=== PATIENT | male | born 1955 | race Caucasian/White ===

== ENCOUNTER 2017-02-18 02:44 | Emergency (ER) | payer MEDICAID ==
[2017-02-18 03:14] VITALS: BP 173/98
--- NOTE | 2017-02-18 03:25 | C.PDOC ---
History Of Present Illness Patient presents to ED with complaints of cough, congestion, "feeling weak" and wants to rest. Patient takes 30mg of Methadone daily but denies overdose on medication. Patient denies fever, chills, Nausea/vomiting and diarrhea. Time Seen by Provider: 02/18/17 03:24 Chief Complaint (Nursing): Substance Abuse History Per: Patient History/Exam Limitations: no limitations Onset/Duration Of Symptoms: Days Current Symptoms Are (Timing): Still Present Suicide/Self Injury Attempted (Context): None Modifying Factor(s): Other (Methadone 30mg daily) Severity: Mild Pain Scale Rating Of: 2 Associated Symptoms: denies: Anger, Anxiety Involuntary Hold By: None Recent travel outside of the [place]: No Additional History Per: Patient Past Medical History Reviewed: Historical Data, Nursing Documentation, Vital Signs Vital Signs: Last Vital Signs Temp 98.5 F 02/18/17 03:07 Pulse 68 02/18/17 05:08 Resp 20 02/18/17 03:07 BP 173/98 H 02/18/17 03:07 Pulse Ox 88 L 02/18/17 03:44 - Medical History PMH: Asthma Family History: States: No Known Family Hx - Social History Hx Tobacco Use: No Hx Alcohol Use: No Hx Substance Use: Yes (HX OF HEROIN ABUSE) - Immunization History Hx Tetanus Toxoid Vaccination: Yes Hx Influenza Vaccination: No Hx Pneumococcal Vaccination: No Review Of Systems Constitutional: Negative for: Fever, Chills Respiratory: Positive for: Cough. Negative for: Shortness of Breath Gastrointestinal: Negative for: Nausea, Vomiting, Diarrhea Skin: Negative for: Rash, Lesions Psych: Negative for: Anxiety Physical Exam - Physical Exam Appears: Non-toxic Skin: Warm, Dry Eye(s): bilateral: Normal Inspection Oral Mucosa: Dry Neck: Supple Cardiovascular: Rhythm Regular Respiratory: No Rales, Rhonchi (Scattered ronchi), No Wheezing Neurological/Psych: Oriented x3, Normal Speech, Normal Cognition Gait: Steady ED Course And Treatment - Laboratory Results Result Diagrams: 02/18/17 04:23 02/18/17 03:58 ECG: Interpreted By Me, Viewed By Me ECG Rhythm: Sinus Rhythm (69), Nonspecific Changes O2 Sat by Pulse Oximetry: 88 (Room air ) Pulse Ox Interpretation: Abnormal - Radiology CXR: Interpreted by Me, Viewed By Me Against Medical Advice - AMA Patient Left Against Medical Advice: The patient declines admission to the hospital and wishes to leave the Emergency Department. This action is against my medical advice. This decision was made with informed refusal. The patient was told that admission to the hospital is necessary. Explanation of the reasons why were discussed. The risks of leaving were explained to the patient and include, but are not limited to, worsening of known or currently unknown conditions, permanent disability and from undiagnosed or untreated conditions. The patient has the capacity to make this informed decision and understands my explanation of the current medical problem and risks of leaving. The patient voluntarily accepts these risks and signed an AMA form documenting our conversation. The patient was given the opportunity to ask questions and reconsider. The patient was encouraged to return to the Emergency Department at any time for further care. Critical Care Time - Critical Care Note Total Time (in mins): 30 Documented critical care: time excludes all time spent performing seperately billable procedures. Disposition Counseled Patient/Family Regarding: Studies Performed, Diagnosis, Need For Followup - Disposition Disposition: AGAINST MEDICAL ADVICE Disposition Time: 03:25 Condition: FAIR Instructions: COPD (Chronic Obstructive Pulmonary Disease) (DC) - Clinical Impression Clinical Impression: COPD exacerbation, Hypercarbia - PA / INSPECTOR [employer]PERIMENT[employer] / Resident Statement MD/DO has reviewed & agrees with the documentation as recorded. - Scribe Statement The provider has reviewed the documentation as recorded by the Scribdaisy Bedoya All medical record entries made by the Joanna were at my direction and personally dictated by me. I have reviewed the chart and agree that the record accurately reflects my personal performance of the history, physical exam, medical decision making, and the department course for this patient. I have also personally directed, reviewed, and agree with the discharge instructions and disposition. Decision To Admit - . Patient Diagnosis: COPD exacerbation, Hypercarbia
[2017-02-18] MEDS ORDERED: Sodium Chloride 0.9% 1,000 ML IV ONE (03:28)
[2017-02-18 04:03] LABS: CHLORIDE 97 mmol/L (98-107); POTASSIUM 4.4 mmol/L (3.6-5.2); SODIUM 139 mmol/L (132-148)
[2017-02-18 04:05] LABS: ALB/GLOB RATIO 0.9 (1.0-2.1); AST/SGOT 24 U/L (17-59); BILIRUBIN,TOTAL 0.2 mg/dL (0.2-1.3); CARBON DIOXIDE 33 mmol/L (22-30); GFR AFRICAN-AMERICAN > 60; TOTAL PROTEIN 7.4 g/dL (6.3-8.3)
[2017-02-18 04:06] LABS: ALKALINE PHOSPHATASE 65 U/L (38-126); ALT/SGPT 25 U/L (21-72); BLOOD UREA NITROGEN 15 mg/dL (9-20); CALCIUM 8.6 mg/dl (8.6-10.4); GLUCOSE,RANDOM 110 mg/dL (75-110)
[2017-02-18 04:19] LABS: ABG ALLEN TEST POS; DRAW SITE RT RAD
[2017-02-18 04:29] LABS: BASO % 0.3 % (0.0-2.0); EOS # 0.1 K/uL (0.0-0.7); EOS % 0.5 % (0.0-4.0); HEMATOCRIT 37.6 % (35.0-51.0); LYMPH # 0.9 K/uL (1.0-4.3); LYMPH % 9.5 % (20.0-40.0); MEAN CELL VOLUME 91.5 fL (80.0-94.0); MEAN CORPUSCULAR HEMOGLOBIN 30.6 pg (27.0-31.0); MEAN CORPUSCULAR HGB CONC 33.5 g/dL (33.0-37.0); MEAN PLATELET VOLUME 6.9 fL (7.2-11.7); MONO # 0.7 K/uL (0.0-0.8); MONO % 7.1 % (0.0-10.0); PLATELET COUNT 152 K/uL (130-400); RED CELL DISTRIBUTION WIDTH 13.7 % (11.5-14.5); WHITE BLOOD COUNT 9.3 K/uL (4.8-10.8)
[2017-02-18 04:52] LABS: NEUTROPHIL 83 % (50-75); TOTAL CELLS COUNTED 100
[2017-02-18 04:54] LABS: RBC URINE 34 /hpf (0-3); URINE BILIRUBIN NEGATIVE (NEGATIVE); URINE BLOOD 2+ (NEGATIVE); URINE COLOR Yellow (YELLOW); URINE GLUCOSE (UA) NORMAL (Normal); URINE KETONE NEGATIVE (NEGATIVE); URINE LEUKOCYTE ESTERASE NEG Leu/uL (Negative); URINE PROTEIN 2+ mg/dL (NEGATIVE); URINE UROBILINOGEN NORMAL mg/dL (0.2-1.0); WBC URINE 7 /hpf (0-5)
[2017-02-18 06:58] VITALS: PULSE 88; RESP 22; TEMP 98; O2SAT 90
--- NOTE | 2017-02-18 09:06 | RAD ---
PROCEDURE: CHEST RADIOGRAPH, 1 VIEW HISTORY: SOB COMPARISON: None available. FINDINGS: LUNGS: No focal infiltrate or effusion. Upper lobe granulomatous changes. PLEURA: No pneumothorax or pleural fluid seen. CARDIOVASCULAR: Normal. OSSEOUS STRUCTURES: No significant abnormalities. VISUALIZED UPPER ABDOMEN: Normal. OTHER FINDINGS: None. IMPRESSION: No focal infiltrate or effusion. Upper lobe granulomatous changes.
--- NOTE | 2017-02-26 14:35 | CARD ---
APPROVED REPORT EKG Measurement Heart [id number] <Conclusion> Normal sinus rhythm Inferior infarct, age undetermined Abnormal ECG
== END 2017-02-18 06:57 | disposition left against medical advice (07) ==
LOC: C.ER 02:44
DX: J44.1 Chronic obstructive pulmonary disease with (acute) exacerbation (principal); R06.89 Other abnormalities of breathing; F17.210 Nicotine dependence, cigarettes, uncomplicated

== ENCOUNTER 2017-04-16 03:55 | Emergency (ER) | payer MEDICAID ==
[2017-04-16] MEDS ORDERED: Sodium Chloride 0.9% 1,000 ML IV ONE (05:12)
--- NOTE | 2017-04-16 05:13 | C.PDOC ---
"History Of Present Illness <Susana Lopes - Last Filed: 04/16/17 06:51> <Dena Swain - Last Filed: 04/16/17 10:16> 61 yo male BIBA for evaluation of diffuse periumbilical cramping abdominal pain for past 3 days. Last BM 3 days ago. Otherwise, denies, lost of appetite, fever , chills, CP, SOB, dyspnea, palpitation, vomiting or diarrhea, melena, hematposchezia, back pain, UTI sx. AT the time of evaluation, comfortable, not in any apparent distress, (Susana Lopes) History Per: Patient Onset/Duration Of Symptoms: Intermittent Episodes, Gradual <Susana Lopes - Last Filed: 04/16/17 06:51> <Dena Swain - Last Filed: 04/16/17 10:16> Time Seen by Provider: 04/16/17 04:14 Chief Complaint (Nursing): GI Problem Past Medical History Reviewed: Historical Data, Nursing Documentation, Vital Signs - Medical History PMH: Asthma Family History: States: Unknown Family Hx - Social History Hx Tobacco Use: No Hx Alcohol Use: No Hx Substance Use: Yes (HX OF HEROIN ABUSE) - Immunization History Hx Tetanus Toxoid Vaccination: Yes Hx Influenza Vaccination: No Hx Pneumococcal Vaccination: No <Susana Lopes - Last Filed: 04/16/17 06:51> Review Of Systems Except As Marked, All Systems Reviewed And Found Negative. Constitutional: Negative for: Fever, Chills ENT: Negative for: Throat Pain Cardiovascular: Negative for: Chest Pain, Palpitations, Light Headedness Respiratory: Negative for: Cough, Shortness of Breath, Wheezing Gastrointestinal: Positive for: Nausea, Abdominal Pain, Constipation. Negative for: Vomiting, Diarrhea, Melena, Hematochezia, Hematemesis Genitourinary: Negative for: Dysuria, Frequency, Incontinence Musculoskeletal: Positive for: Back Pain, Foot Pain. Negative for: Neck Pain Skin: Negative for: Rash Neurological: Negative for: Altered Mental Status <Susana Lopes - Last Filed: 04/16/17 06:51> Physical Exam - Physical Exam Appears: Well, Non-toxic, No Acute Distress Skin: Normal Color, Warm, Dry Eye(s): bilateral: PERRL Nose: No Flaring Throat: Normal, No Erythema, No Exudate, No Drooling Neck: Supple Cardiovascular: Rhythm Regular Respiratory: No Decreased Breath Sounds, No Accessory Muscle Use, No Stridor, No Wheezing Gastrointestinal/Abdominal: Normal Exam (periumbilical tenderness), Soft, Tenderness, No Organomegaly, No Distention, No Guarding Back: No CVA Tenderness Extremity: No Pedal Edema Neurological/Psych: Oriented x3, Normal Speech <Susana Lopes - Last Filed: 04/16/17 06:51> ED Course And Treatment - Laboratory Results Result Diagrams: 04/16/17 05:55 04/16/17 05:55 O2 Sat by Pulse Oximetry: 97 Progress Note: Pt remained stable, not in any apparent distress. Afebrile, hemodynamicaly stable. Abd: benign, (-) guarding, (-) rebound. Blood work review and appears without acute abnoramlities. CT abd/pelvis-pending. case discussed and sign out to PA. <Susana Lopes - Last Filed: 04/16/17 06:51> - Laboratory Results Result Diagrams: 04/16/17 05:55 04/16/17 05:55 Progress Note: Pt was signed out to me at 7am pending CT scan. Pt was evaluated at 7am. C/o LLQ abd pain, described as cramping. No N/v. Notes he feels like he need to have BM. No fever. Toradol ordered. CT result: EXAM: CT Abdomen and Pelvis With Intravenous Contrast. CLINICAL HISTORY: 61 years old, male; Pain; Abdominal pain; Generalized; Additional info: Abd pain. TECHNIQUE: Axial computed tomography images of the abdomen and pelvis with intravenous contrast. This CT. exam was performed using one or more of the following dose reduction techniques: automated. exposure control, adjustment of the mA and/or kV according to patient size, and/or use of iterative. reconstruction technique. CONTRAST: 100 mL of visipaque administered intravenously. EXAM DATE/TIME: Exam ordered 04/16/2017 5:12 AM. COMPARISON: No relevant prior studies available. FINDINGS: Lower thorax: No acute findings. ABDOMEN: Liver: Unremarkable. No mass. Gallbladder and bile ducts: Unremarkable. No calcified stones. No ductal dilation. Pancreas: Unremarkable. No mass. No ductal dilation. Spleen: Unremarkable. No splenomegaly. Adrenals: Unremarkable. No mass. Kidneys and ureters: Unremarkable. No solid mass. No hydronephrosis. [facility] | Preliminary Radiology Report. MANAGER DAIRY (QA) DISCREPANCY? If there is a discrepancy between the preliminary and final interpretation, please notify [facility] via [email or web address]. If you do not have access to our QA portal, call our QA team at [phone]. CONFIDENTIALITY STATEMENT. This report is intended only for the use of the referring physician, and only in accordance with law, If you received this in error, call [phone]. Page 2 of 2. Stomach and bowel: Moderate fecal retention. Appendix: No findings to suggest acute appendicitis. PELVIS: Bladder: Unremarkable. No mass. Reproductive: Unremarkable as visualized. ABDOMEN and PELVIS: Intraperitoneal space: Unremarkable. No free air. No significant fluid collection. Bones/joints: Degenerative change in the spine. No acute fracture. No dislocation. Soft tissues: Small fat containing umbilical hernia. Fat-containing inguinal hernias. Vasculature: Atherosclerosis. Mild nonspecific stranding around the celiac and SMA both of which. appear to be patent, and may be inflammatory however is nonspecific. No abdominal aortic. aneurysm. Lymph nodes: Scattered inguinal lymph nodes are presumably inflammatory. IMPRESSION: Moderate fecal retention. Thank you for allowing us to participate in the care of your patient. On re-evaluation, pt is sleeping. Pain improved. Discussed results of CT. Fleet enema ordered. On re-evaluation, pt notes improvement of pain. Pt had BM. Instructed diet change and follow up with PMD in 1-2 days. Instructed to returm to ER if symptoms persist or worsen. <Dena Swain - Last Filed: 04/16/17 10:16> Disposition <Susana Lopes - Last Filed: 04/16/17 06:51> - Disposition Disposition Time: 09:00 <Dena Swain - Last Filed: 04/16/17 10:16> - Disposition Disposition: HOME/ ROUTINE Condition: STABLE Additional Instructions: Increase your fiber and water intake.Follow up with your primary medical doctor or clinic in 2-5 days for further evaluation. Take medications as prescribed. Return to the emergency department at any time if symptoms persist or worsen. Prescriptions: Polyethylene Glycol 3350 [Miralax] 17 gm PO DAILY #85 gm Instructions: Constipation (ED) - Clinical Impression Clinical Impression: Constipation"
[2017-04-16] MEDS ORDERED: Sodium Chloride 0.9% 1,000 ML ONE (05:37)
[2017-04-16 05:57] LABS: BASO % 0.2 % (0.0-2.0); EOS # 0.1 K/uL (0.0-0.7); EOS % 0.7 % (0.0-4.0); HEMATOCRIT 42.7 % (35.0-51.0); LYMPH # 1.6 K/uL (1.0-4.3); LYMPH % 15.1 % (20.0-40.0); MEAN CELL VOLUME 89.8 fL (80.0-94.0); MEAN CORPUSCULAR HGB CONC 33.5 g/dL (33.0-37.0); MONO # 0.7 K/uL (0.0-0.8); MONO % 6.4 % (0.0-10.0); RED CELL DISTRIBUTION WIDTH 13.7 % (11.5-14.5); WHITE BLOOD COUNT 10.5 K/uL (4.8-10.8)
[2017-04-16 06:12] LABS: CHLORIDE 99 mmol/L (98-107)
[2017-04-16 06:14] LABS: POTASSIUM 4.4 mmol/L (3.6-5.2); SODIUM 136 mmol/L (132-148)
[2017-04-16 06:15] LABS: RBC URINE 11 /hpf (0-3); URINE BILIRUBIN NEGATIVE (NEGATIVE); URINE BLOOD 2+ (NEGATIVE); URINE COLOR Yellow (YELLOW); URINE GLUCOSE (UA) NORMAL (Normal); URINE KETONE NEGATIVE (NEGATIVE); URINE LEUKOCYTE ESTERASE NEG Leu/uL (Negative); URINE PROTEIN 2+ mg/dL (NEGATIVE); URINE UROBILINOGEN NORMAL mg/dL (0.2-1.0); WBC URINE 1 /hpf (0-5)
[2017-04-16 06:16] LABS: ALKALINE PHOSPHATASE 74 U/L (38-126); ALT/SGPT 25 U/L (21-72); AST/SGOT 29 U/L (17-59); BILIRUBIN,TOTAL 0.5 mg/dL (0.2-1.3); BLOOD UREA NITROGEN 15 mg/dL (9-20); CARBON DIOXIDE 30 mmol/L (22-30); GFR AFRICAN-AMERICAN > 60
[2017-04-16 06:17] LABS: CALCIUM 8.8 mg/dl (8.6-10.4); GLUCOSE,RANDOM 118 mg/dL (75-110)
[2017-04-16] MEDS ORDERED: Iodixanol 320 MG/ML 100 ML BOTTLE IV ONE (06:29)
[2017-04-16 07:09] VITALS: RESP 18
[2017-04-16 09:09] VITALS: BP 155/79; PULSE 71; TEMP 98.3; O2SAT 99
--- NOTE | 2017-04-16 10:22 | CT ---
PROCEDURE: CT Abdomen and Pelvis with intravenous contrast HISTORY: Abdominal pain COMPARISON: None. TECHNIQUE: Multiple contiguous axial images were performed through the abdomen and pelvis with the use of intravenous contrast. Subsequently, sagittal and coronal reformatted images were obtained. Radiation dose: Total exam DLP = 614 mGy-cm. This CT exam was performed using one or more of the following dose reduction techniques: Automated exposure control, adjustment of the mA and/or kV according to patient size, and/or use of iterative reconstruction technique. FINDINGS: LOWER THORAX: Unremarkable. LIVER: Mild fatty infiltration of the liver. Few punctate 4 and 2 millimeter calcified foci in the right hepatic lobe, possibly granulomatous changes. GALLBLADDER AND BILE DUCTS: Unremarkable. PANCREAS: Unremarkable. No gross lesion or ductal dilatation. SPLEEN: Unremarkable. ADRENALS: Unremarkable. No mass. KIDNEYS AND URETERS: Unremarkable. No hydronephrosis. No solid mass. VASCULATURE: Atherosclerosis. Mild nonspecific stranding around the celiac and SMA both of which appear to be patent. These findings are nonspecific, possibly inflammatory. Clinical correlation. BOWEL: Moderate fecal retention in the colon. APPENDIX: No findings to suggest an acute appendicitis. PERITONEUM: Unremarkable. No free fluid. No free air. LYMPH NODES: Scattered inguinal lymph nodes presumably inflammatory. BLADDER: Unremarkable. REPRODUCTIVE: Unremarkable. BONES: Degenerative changes in the spine. OTHER FINDINGS: Small fat containing umbilical hernia. Fat containing inguinal hernias. IMPRESSION: Moderate fecal retention in the colon. Mild nonspecific stranding around the celiac and SMA both of which appear to be patent. These findings are nonspecific, possibly inflammatory. Clinical correlation. Additional findings as above. These findings were preliminarily reported at 8:14 a.m. on 04/16/[address] Crispin Day from [facility].
== END 2017-04-16 09:09 | disposition home or self-care (01) ==
LOC: C.ER 03:55
DX: K59.00 Constipation, unspecified (principal)
CPT/HCPCS: 74177; 80053; 81001; 83690; 85025; 96361; 96374; 99285; J1885; J7040; Q9967

== ENCOUNTER 2017-12-17 13:35 | Emergency (ER) | payer MEDICAID ==
[2017-12-17] MEDS ORDERED: Albuterol-Ipratrop 3 mg / 0.5 (3 ml) UD INH STA ×2 (13:51→14:18)
[2017-12-17] MEDS ORDERED: Magnesium Sulfate 1 gm in D5W 1 GM/100 ML BAG IVPB ONE ×2 (14:29→15:27)
[2017-12-17] MEDS: Magnesium Sulfate 1 gm in D5W 1 GM/100 ML BAG IVPB SCH ×2 (14:45→15:30)
[2017-12-17 14:47] LABS: BASO % 0.2 % (0.0-2.0); EOS # 0.2 K/uL (0.0-0.7); EOS % 2.6 % (0.0-4.0); HEMOGLOBIN 13.6 g/dL (12.0-18.0); LYMPH # 1.1 K/uL (1.0-4.3); LYMPH % 15.4 % (20.0-40.0); MEAN CELL VOLUME 90.7 fL (80.0-94.0); MEAN CORPUSCULAR HEMOGLOBIN 30.4 pg (27.0-31.0); MEAN CORPUSCULAR HGB CONC 33.6 g/dL (33.0-37.0); MONO # 0.6 K/uL (0.0-0.8); MONO % 7.8 % (0.0-10.0); NEUT # 5.5 K/uL (1.8-7.0); RBC 4.46 Mil/uL (4.40-5.90); RED CELL DISTRIBUTION WIDTH 13.6 % (11.5-14.5); WHITE BLOOD COUNT 7.4 K/uL (4.8-10.8)
[2017-12-17] MEDS ORDERED: Albuterol-Ipratrop 3 mg / 0.5 (3 ml) UD ONE (14:54)
[2017-12-17 14:59] LABS: ALB/GLOB RATIO 0.9 (1.0-2.1); ALBUMIN 3.7 g/dL (3.5-5.0); ALT/SGPT 32 U/L (21-72); AST/SGOT 28 U/L (17-59); BLOOD UREA NITROGEN 18 mg/dL (9-20); CALCIUM 8.5 mg/dl (8.6-10.4); GFR AFRICAN-AMERICAN > 60; GFR NON-AFRICAN AMERICAN > 60
--- NOTE | 2017-12-17 15:03 | RAD ---
HISTORY: SOB- cough COMPARISON: Chest x-ray performed 02/18/17 TECHNIQUE: Chest, one view. FINDINGS: LUNGS: Bilateral hilar prominence. No focal consolidation. Please note that chest x-ray has limited sensitivity for the detection of pulmonary masses. PLEURA: No significant pleural effusion identified. No definite pneumothorax . CARDIOVASCULAR: Heart size appears within normal limits. OSSEOUS STRUCTURES: No acute osseous abnormality identified. VISUALIZED UPPER ABDOMEN: Unremarkable. OTHER FINDINGS: None. IMPRESSION: No focal consolidation identified. Bilateral hilar prominence.
--- NOTE | 2017-12-17 15:11 | C.PDOC ---
History Of Present Illness 62 y/o male presents to ED with complaints of SOB and dry cough that began several days ago. Denies fever, chest pain, nausea, vomiting, body aches, PMHx or home medications. Chief Complaint (Nursing): Cough, Cold, Congestion History Per: Patient History/Exam Limitations: no limitations Onset/Duration Of Symptoms: Days Current Symptoms Are (Timing): Still Present Recent travel outside of the [place]: No Past Medical History Reviewed: Historical Data, Nursing Documentation, Vital Signs Vital Signs: Last Vital Signs Temp 98.7 F 12/17/17 19:00 Pulse 62 12/17/17 19:00 Resp 18 12/17/17 19:00 BP 110/92 H 12/17/17 19:00 Pulse Ox 100 12/17/17 19:00 - Medical History PMH: Asthma Surgical History: No Surg Hx Family History: States: No Known Family Hx - Social History Hx Tobacco Use: No Hx Alcohol Use: No Hx Substance Use: Yes (HX OF HEROIN ABUSE) - Immunization History Hx Tetanus Toxoid Vaccination: Yes Hx Influenza Vaccination: No Hx Pneumococcal Vaccination: No Review Of Systems Constitutional: Negative for: Fever, Chills Cardiovascular: Negative for: Chest Pain, Palpitations Respiratory: Positive for: Cough (dry ), Shortness of Breath Gastrointestinal: Negative for: Nausea, Vomiting, Abdominal Pain, Diarrhea Musculoskeletal: Negative for: Other (body aches) Neurological: Negative for: Weakness, Numbness Physical Exam - Physical Exam Appears: Well, Non-toxic, Other (Mild distress ) Skin: Normal Color, Warm, Dry Head: Atraumatic, Normacephalic Eye(s): bilateral: Normal Inspection Oral Mucosa: Moist Neck: Supple Chest: Symmetrical, No Tenderness Cardiovascular: Rhythm Regular Respiratory: No Rales, No Rhonchi, Wheezing (bilateral expiratory ) Gastrointestinal/Abdominal: Soft, No Tenderness, No Distention, No Guarding, No Rebound Extremity: Normal ROM, No Pedal Edema, No Swelling Extremity: Bilateral: Normal Color And Temperature, Normal ROM Neurological/Psych: Oriented x3, Normal Speech, Normal Cognition ED Course And Treatment - Laboratory Results Result Diagrams: 12/17/17 14:42 12/17/17 14:42 O2 Sat by Pulse Oximetry: 91 (RA) - Other Rad CXR X-Ray: Viewed By Me, Read By Radiologist Interpretation: HISTORY: SOB- cough. COMPARISON: Chest x-ray performed . TECHNIQUE: Chest, one view. FINDINGS: LUNGS: Bilateral hilar prominence. No focal consolidation. Please note that chest x-ray has limited sensitivity for the detection of pulmonary masses. PLEURA: No significant pleural effusion identified. No definite pneumothorax . CARDIOVASCULAR: Heart size appears within normal limits. OSSEOUS STRUCTURES: No acute osseous abnormality identified. VISUALIZED UPPER ABDOMEN: Unremarkable. OTHER FINDINGS: None. IMPRESSION: No focal consolidation identified. Bilateral hilar prominence. Critical Care Time - Critical Care Note Total Time (in mins): 0 Documented critical care: time excludes all time spent performing seperately billable procedures. Medical Decision Making Medical Decision Making: Administered Iv fluids, and duoneb.Ordered EKG, blood work, CXR, blood culture, Peak flow, and Flu AB swab. EKG Results: Sinus rhythm at 69 bpm Normal axis and rhythm spoke with Dr.Padmavathi Aviles and patient will be admitted to her service. Disposition - Disposition Disposition: AGAINST MEDICAL ADVICE Disposition Time: 15:30 Condition: GOOD - Clinical Impression Clinical Impression: COPD exacerbation - Scribe Statement The provider has reviewed the documentation as recorded by the Scribe Vic Hernandez All medical record entries made by the Scribe were at my direction and personally dictated by me. I have reviewed the chart and agree that the record accurately reflects my personal performance of the history, physical exam, medical decision making, and the department course for this patient. I have also personally directed, reviewed, and agree with the discharge instructions and disposition.
[2017-12-17 15:47] LABS: B-TYPE NATRIURETIC PEPTIDE 48.5 pg/mL (0-900)
[2017-12-17 19:21] VITALS: BP 110/92; PULSE 62; RESP 18; TEMP 98.7
[2017-12-18 00:25] VITALS: O2SAT 91
--- NOTE | 2017-12-19 14:41 | CARD ---
APPROVED REPORT EKG Measurement Heart [id number] <Conclusion> Normal sinus rhythm Incomplete right bundle branch block Borderline ECG
== END 2017-12-17 19:00 | disposition left against medical advice (07) ==
LOC: C.ER 13:35 → C.9E 15:46 → UNDOADMOB 15:46
DX: J44.1 Chronic obstructive pulmonary disease with (acute) exacerbation (principal)
CPT/HCPCS: 71045; 80053; 83880; 84484; 85025; 87040; 87804; 93005; 94640; 96365; 96366; 96375; 99285; J2930; J3475